=== PATIENT | female | born 1985 | race Caucasian/White ===

== ENCOUNTER 2021-12-14 14:33 | Emergency (ER) | payer OTHER ==
[~2021-12-14] VITALS: Ht 165.1 cm; Wt 104.3 kg
[2021-12-14] MEDS ORDERED: AMOCLA875 PO (14:54)
== END 2021-12-14 14:58 | disposition home or self-care (01) ==
LOC: ER 14:33
DX: S01.431A Puncture wound without foreign body of right cheek and temporomandibular area, initial encounter (principal); W54.0XXA Bitten by dog, initial encounter; Z88.8 Allergy status to other drugs, medicaments and biological substances
CPT/HCPCS: 99283

== ENCOUNTER → 2023-03-14 | Outpatient (CLI) | payer OTHER ==
[~2023-03-14] MED LIST: AMOCLA875 PO
== END | disposition home or self-care (01) ==
LOC: LAB 16:33 → LAB SHORT 16:33
DX: N39.0 Urinary tract infection, site not specified (principal)
CPT/HCPCS: 87077; 87086; 87186

== ENCOUNTER 2023-05-25 15:17 | Emergency (ER) | payer OTHER ==
[~2023-05-25] VITALS: Ht 165.1 cm; Wt 86.2 kg
[2023-05-25 15:39] VITALS: BP 126/98
[2023-05-25 17:29] LABS: Influenza A, PCR NEGATIVE (NEGATIVE); Influenza B, PCR NEGATIVE (NEGATIVE); Resp Syncytial Virus, PCR NEGATIVE (NEGATIVE); SARS-Cov-2 (COVID-19) PCR, MMC NEGATIVE (NEGATIVE)
== END 2023-05-25 17:15 | disposition home or self-care (01) ==
LOC: ER 15:17
PROVIDERS: Student in an Organized Health Care Education/Training Program
DX: R07.89 Other chest pain (principal); R06.02 Shortness of breath; R06.2 Wheezing; F17.290 Nicotine dependence, other tobacco product, uncomplicated; Z88.1 Allergy status to other antibiotic agents; Z88.2 Allergy status to sulfonamides; Z88.8 Allergy status to other drugs, medicaments and biological substances; Z87.09 Personal history of other diseases of the respiratory system
CPT/HCPCS: 0241U; 71046; 94640; 94664; 96372; 99284-25; J1885

== ENCOUNTER 2023-10-26 16:29 | Emergency (ER) | payer OTHER ==
[~2023-10-26] VITALS: Ht 165.1 cm; Wt 99.8 kg
[2023-10-26] MEDS ORDERED: Ketorolac Tromethamine 15mg Vial IM ONE (18:00)
[2023-10-26] MEDS ORDERED: Lidocaine 4% 1 Patch TOP ONE (18:00)
[2023-10-26] MEDS ORDERED: ASPERFLEX1 EACH TOP (18:05)
[2023-10-26 18:51] VITALS: BP 150/99
== END 2023-10-26 18:52 | disposition home or self-care (01) ==
LOC: ER 16:29
DX: M25.512 Pain in left shoulder (principal); M54.2 Cervicalgia; X50.0XXA Overexertion from strenuous movement or load, initial encounter; Y99.0 Civilian activity done for income or pay; Z88.8 Allergy status to other drugs, medicaments and biological substances; Z88.2 Allergy status to sulfonamides; Z88.1 Allergy status to other antibiotic agents; F17.290 Nicotine dependence, other tobacco product, uncomplicated
CPT/HCPCS: 72040; 73030; 96372; 99283-25; A9270; J1885

== ENCOUNTER 2023-10-29 13:18 | Emergency (ER) | payer OTHER ==
[~2023-10-29] VITALS: Ht 165.1 cm; Wt 90.7 kg
[~2023-10-29 13:18] MED LIST changes: +ASPERFLEX1 EACH TOP
[2023-10-29 13:47] VITALS: BP 143/109
== END 2023-10-29 13:54 | disposition home or self-care (01) ==
LOC: ER 13:18
DX: Z02.89 Encounter for other administrative examinations (principal); F17.290 Nicotine dependence, other tobacco product, uncomplicated; Z79.899 Other long term (current) drug therapy; Z88.1 Allergy status to other antibiotic agents; Z88.8 Allergy status to other drugs, medicaments and biological substances
CPT/HCPCS: 99281

== ENCOUNTER → 2024-02-24 | Outpatient (CLI) | payer OTHER | END | disposition home or self-care (01) | LOC: LAB SHORT 13:54 → LAB 13:54 | DX: N39.0 Urinary tract infection, site not specified (principal) | CPT/HCPCS: 87077; 87086; 87186 ==

== ENCOUNTER 2024-05-12 15:04 | Emergency (ER) | payer OTHER ==
[~2024-05-12] VITALS: Ht 165.1 cm; Wt 122.5 kg
[2024-05-12 17:12] VITALS: BP 164/114
[2024-05-12 17:44] LABS: CORONAVIRUS COVID-19 AG Negative (NEGATIVE); INFLUENZA A AG Negative (NEGATIVE); INFLUENZA B AG Negative (NEGATIVE)
== END 2024-05-12 20:47 | disposition home or self-care (01) ==
LOC: ER 15:04
PROVIDERS: Physician Assistant
DX: R19.7 Diarrhea, unspecified (principal); F17.290 Nicotine dependence, other tobacco product, uncomplicated; Z88.1 Allergy status to other antibiotic agents; Z88.8 Allergy status to other drugs, medicaments and biological substances
CPT/HCPCS: 87428-QW; 99283

== ENCOUNTER → 2024-05-21 | Outpatient (CLI) | payer OTHER ==
[2024-05-22 15:29] LABS: Campylobacter Sp Not Detected (NOT DETECT); E. Coli O157 Not Detected (NOT DETECT); Enteroaggregative E. coli-EAEC Not Detected (NOT DETECT); Enteropathogenic E. coli-EPEC Not Detected (NOT DETECT); Enterotoxigenic E. coli-ETEC Not Detected (NOT DETECT); Plesiomonas Shigelloides Not Detected (NOT DETECT); Salmonella Sp Not Detected (NOT DETECT); Shiga Toxin-prod E. coli-STEC Not Detected (NOT DETECT); Vibrio Cholerae Not Detected (NOT DETECT); Vibrio Sp Not Detected (NOT DETECT); Yersinia Enterocolitica Not Detected (NOT DETECT)
[2024-05-22 15:30] LABS: Adenovirus F 40/41 Not Detected (NOT DETECT); Astrovirus Not Detected (NOT DETECT); Cryptosporidium Not Detected (NOT DETECT); Cyclospora Cayetanensis Not Detected (NOT DETECT); Entamoeba Histolytica Not Detected (NOT DETECT); Giardia Lamblia Not Detected (NOT DETECT); Norovirus GI/GII Not Detected (NOT DETECT); Rotavirus A Not Detected (NOT DETECT); Sapovirus Not Detected (NOT DETECT); Shigella/Enteroin E. coli-EIEC Not Detected (NOT DETECT)
== END ==
LOC: LAB SHORT 13:16 → LAB 13:16
PROVIDERS: Physician Assistant
DX: A09 Infectious gastroenteritis and colitis, unspecified (principal)
CPT/HCPCS: 87324; 87507

== ENCOUNTER → 2024-06-27 | Outpatient (CLI) | payer OTHER ==
[2024-06-27 19:00] LABS: Bacterial Vaginosis PCR Negative (NEGATIVE); Candida Group, PCR NOT DETECTED (NOT DETECT); Candida glabrata-krusei, PCR NOT DETECTED (NOT DETECT)
== END ==
LOC: LAB SHORT 14:48 → LAB 14:48
PROVIDERS: Physician Assistant Medical
DX: N89.8 Other specified noninflammatory disorders of vagina (principal)
CPT/HCPCS: 81515

== ENCOUNTER 2024-11-09 07:39 | Day surgery (SDC) | payer OTHER | END 2024-11-09 23:00 | disposition home or self-care (01) | LOC: CT 07:39 | DX: R07.89 Other chest pain (principal); F32.9 Major depressive disorder, single episode, unspecified; I10 Essential (primary) hypertension; F17.210 Nicotine dependence, cigarettes, uncomplicated; E78.2 Mixed hyperlipidemia; E66.813 Obesity, class 3; Z68.42 Body mass index [BMI] 45.0-49.9, adult; Z79.899 Other long term (current) drug therapy | CPT/HCPCS: 36415; 75574; 80053; 80061; 83036; 85025; Q9967 ==